=== PATIENT | male | born 1980 | race African-American/Black ===

== ENCOUNTER 2021-11-02 10:06 | Outpatient (CLI) | payer OTHER, SELFPAY ==
[2021-11-02 15:34] LABS: TSH With Reflex to FT4* 0.956 uIU/mL (0.270-4.200)
[2021-11-02 15:39] LABS: Albumin* 4.7 g/dL (3.3-5.0)
[2021-11-02 15:40] LABS: Chloride* 98 mmol/L (96-114); Potassium* 4.1 mmol/L (3.6-5.1); Sodium* 137 mmol/L (135-149)
[2021-11-02 15:42] LABS: Bilirubin Total* 0.7 mg/dL (0.1-1.5); Carbon Dioxide* 30 mmol/L (20-32); Creatinine* 0.8 mg/dL (0.5-1.5); Estimated Glomerular Filt Rate 113 ml/min
[2021-11-02 15:43] LABS: Aspartate Amino Transferase* 34 U/L (12-35); Blood Urea Nitrogen* 17 mg/dL (5-24); Glucose* 103 mg/dL (60-115); Total Protein* 7.7 g/dL (6.0-8.3)
[2021-11-02 15:46] LABS: Calcium* 9.6 mg/dL (8.4-10.6)
[2021-11-02 15:57] LABS: Alanine Aminotransferase* 39 U/L (4-50); Alkaline Phosphatase* 76 U/L (40-150); HDL Cholesterol* 51 mg/dL (>=40); LDL Cholesterol Calculated 128 mg/dL (<100); Triglycerides* 133 mg/dL (40-149)
[2021-11-02 15:59] LABS: Cholesterol* 206 mg/dL (90-199)
== END 2021-11-02 10:07 | disposition home or self-care (01) ==
PROVIDERS: PCP Physician Assistant Medical; Visit Provider Physician Assistant Medical
DX: Z00.00 Encounter for general adult medical examination without abnormal findings (principal); Z13.29 Encounter for screening for other suspected endocrine disorder; Z13.6 Encounter for screening for cardiovascular disorders
CPT/HCPCS: 80053; 80061; 84443